=== PATIENT | male | born 1950 | race Caucasian/White ===

== ENCOUNTER 2018-03-24 10:16 | Outpatient (CLI) | payer MEDICARE, BC ==
[2018-03-24] MEDS ORDERED: BARIUM SULFATE 176 GM BOTTLE PO ONE (11:41)
[2018-03-24] MEDS ORDERED: BARIUM SULFATE 135 ML BOTTLE PO ONE (11:41)
--- NOTE | 2018-03-24 15:09 | XRAY Report ---
ESOPHAGRAM: 03/24/2018 CLINICAL INDICATION: Sensation of food sticking in mid-esophagus, history of severe chest trauma. COMPARISON: Upper gastrointestinal 02/12/2013. FINDINGS: Esophagram was performed in the upright and prone positions. The hypopharynx appears unremarkable. The esophagus is normal in caliber. Aortic stent graft is again noted. A small sliding hiatal hernia is again seen, producing gastroesophageal reflux. Presbyesophagus is again noted. No ulceration, mass lesion, or stricture ring is identified. A 13 mm barium pill passed freely through the esophagus and into the stomach. IMPRESSION: PERSISTENT SMALL SLIDING HIATAL HERNIA AND PRESBYESOPHAGUS. NO ULCERATION, MASS LESION, OR STRICTURING IS IDENTIFIED. CONSIDER ENDOSCOPY TO EVALUATE FOR DEVELOPMENT OF SOUSA'S ESOPHAGUS, IF CLINICALLY WARRANTED. FLUOROSCOPY TIME: 1 minute 48 seconds; 17 spot images obtained. TD: 03/24/2018 15:09
== END 2018-03-24 10:17 | disposition home or self-care (01) ==
LOC: DI 10:16
PROVIDERS: ATTEND Internal Medicine
DX: K44.9 Diaphragmatic hernia without obstruction or gangrene (principal); K22.8 Other specified diseases of esophagus
CPT/HCPCS: 74220; A9270

== ENCOUNTER 2018-05-30 14:12 | Emergency (ER) | payer MEDICARE, BC ==
[2018-05-30] MEDS ORDERED: ASPIRIN CHEW 81 MG TABLET PO STA (14:38)
--- NOTE | 2018-05-30 14:42 | ED Physician Documentation ---
PD HPI CHEST PAIN - Stated complaint Stated Complaint: CHEST TIGHNESS/WEAKNESS - Chief complaint Chief Complaint: Cardiac - History obtained from History obtained from: Patient - History of Present Illness Timing - onset: Today (This is a 68-year-old gentleman who about 5 years ago had a major trauma with aortic tear and aortic stent in place in the ascending aorta, he was treated at that time at [facility]. He was visiting [place] last week, up at altitude, this was about a week ago, but only 9000 feet. He developed shortness of breath and edema, he was seen at a clinic. He also had gastroenteritis with diarrhea. He was treated with ciprofloxacin, but was also noted to have bigeminy on EKG and pulmonary edema so was taken down to see level where those symptoms resolved. However given the bigeminy I think there was a concern for coronary disease and he was advised to follow-up with a electronics hardware design engineer on return home. He was slowly improving, but has been fairly fatigued. Today he went out for his usual walk but had to cut it shorter early because he developed chest tightness, anterior and nonradiating without shortness of breath. He went home and rested and the chest tightness went away within a few hours. He is pain-free at this juncture.) - Additional information Additional information: They bring with them records from [place], they were reviewed. He had a negative troponin, high d-dimer. Chest x-ray after resolution of the pulmonary edema was clear to my eye. He does have an EKG with him which showed bigeminy but no other significant ST-T changes. He did have a high d-dimer at the time, but it sounds like that was treated with Lovenox as opposed to further testing at least initially because they did lack to CT scanner. Review of Systems Ten Systems: 10 systems reviewed and negative Constitutional: denies: Fever, Chills Cardiac: reports: Chest pain / pressure. denies: Palpitations, Pedal edema, Calf pain Respiratory: denies: Dyspnea, Cough GI: denies: Abdominal Pain, Abdominal Swelling, Nausea, Vomiting : denies: Dysuria, Frequency, Hesitancy PD PAST MEDICAL HISTORY - Past Medical History Past Medical History: Yes Cardiovascular: Other Respiratory: None Endocrine/Autoimmune: None GI: GERD, Hemorrhoids : None HEENT: None Psych: None Musculoskeletal: Chronic back pain Derm: None - Past Surgical History Past Surgical History: Yes General: Cholecystectomy Ortho: Arthroscopic surgery, Other Cardiovascular: Other - Present Medications Home Medications: Ambulatory Orders Medication Instructions Recorded Confirmed Acyclovir 200 mg PO DAILY 03/31/15 08/17/15 Atorvastatin Calcium 40 mg PO DAILY #30 tablet 05/30/18 Metoprolol Succinate 25 mg PO DAILY #30 tab.er.24h 05/30/18 Nitroglycerin 0.4 mg SL ONCE #1 bot 05/30/18 - Allergies Allergies/Adverse Reactions: Allergies Allergy/AdvReac Type Severity Reaction Status Date / Time bee venom protein (honey bee) Allergy Anaphylaxis Verified 05/30/18 14:20 - Social History Does the pt smoke?: No Smoking Status: Never smoker Does the pt drink ETOH?: No Does the pt have substance abuse?: No - Family History Family history: reports: Non contributory - Immunizations Immunizations are current?: Yes - POLST Patient has POLST: No PD ED PE NORMAL - Vitals Vital signs reviewed: Yes - General General: Alert and oriented X 3, No acute distress - HEENT HEENT: PERRL, EOMI - Neck Neck: Supple, no meningeal sign, No bony TTP - Cardiac Cardiac: RRR, No murmur - Respiratory Respiratory: No respiratory distress, Clear bilaterally - Abdomen Abdomen: Normal bowel sounds, Soft, Non tender - Back Back: No CVA TTP, No spinal TTP - Derm Derm: Normal color, Warm and dry - Extremities Extremities: No edema, No calf tenderness / cord - Neuro Neuro: Alert and oriented X 3, Normal speech - Psych Psych: Normal mood, Normal affect Results - Vitals Vitals: Vital Signs - 24 hr 05/30/18 05/30/18 05/30/18 14:16 15:14 15:45 Temperature 36.7 C Heart Rate 87 71 70 Respiratory 16 14 16 Rate Blood Pressure 106/85 H 136/90 H 119/70 O2 Saturation 97 96 99 Oxygen O2 Source Room air - EKG (time done) 1419 Rate: Rate (enter#) (79) Rhythm: NSR [place]: Normal Intervals: Other (LAFB) QRS: Normal Ischemia: Normal ST segments Computer interpretation: Agree with computer - Labs Labs: Laboratory Tests 05/30/18 05/30/18 05/30/18 14:45 14:45 14:45 WBC 5.5 RBC 4.59 L Hgb 14.7 Hct 43.0 MCV 93.8 MCH 32.1 H MCHC 34.3 RDW 13.0 Plt Count 238 MPV 7.6 Neut # (Auto) 3.4 Lymph # (Auto) 1.5 [place] # (Auto) 0.5 Eos # (Auto) 0.1 Baso # (Auto) 0.1 Absolute Nucleated RBC 0.00 Nucleated RBC % 0.0 Sodium 136 Potassium 3.9 Chloride 102 Carbon Dioxide 27 Anion Gap 7.0 BUN 17 Creatinine 1.2 Estimated GFR (MDRD) 60 L Glucose 102 H Calcium 9.0 Total Bilirubin 0.6 AST 19 ALT 21 Alkaline Phosphatase 73 Troponin I < 0.04 Total Protein 7.3 Albumin 3.9 Globulin 3.4 Albumin/Globulin Ratio 1.1 Lipase 37 - Rads (name of study) CTA Chest Radiology: EMP read contemporaneously (NAD, no PE) PD MEDICAL DECISION MAKING - ED course ED course: No known history I do not think of coronary disease presents with an episode of what sounds like somewhat typical exertional angina after traveling and having a bout of GI symptoms and altitude sickness. He is pain-free on arrival with a nonischemic EKG here. And his biomarkers are negative. Given the positive d- dimer in [place] his chest was CT to rule out pulmonary embolism, but his symptoms really are not too reminiscent of PE per se. He will need expedited follow-up with a electronics hardware design engineer for a stress test and I spoke with Dr. Vazquez hematologist oncologist for the [facility] system who agreed and will put in a referral, they should still call the clinic and I will give him number. He agreed with putting him on a beta-brigette and a statin but no Plavix for now and continuing the aspirin. - Sepsis Event Vital Signs: Vital Signs - 24 hr 05/30/18 05/30/18 05/30/18 14:16 15:14 15:45 Temperature 36.7 C Heart Rate 87 71 70 Respiratory 16 14 16 Rate Blood Pressure 106/85 H 136/90 H 119/70 O2 Saturation 97 96 99 Oxygen O2 Source Room air Departure - Departure Disposition: 01 Home, Self Care Clinical Impression: Chest pain Qualifiers: Chest pain type: unspecified Qualified Code(s): R07.9 - Chest pain, unspecified Condition: Good Record reviewed to determine appropriate education?: Yes Instructions: Nitroglycerin Fast Act Dc, Angina Dc Prescriptions: Atorvastatin Calcium 40 mg PO DAILY #30 tablet Metoprolol Succinate 25 mg PO DAILY #30 tab.er.24h Nitroglycerin 0.4 mg SL ONCE #1 bot Comments: I spoke with the electronics hardware design engineer hematologist oncologist for the [facility] system today, Dr. Vazquez who will put in a referral for cardiology visit and echocardiogram and/or stress test. In the meantime there are some new medications to start which I have written new prescriptions for, if you develop further chest pain please return immediately for reevaluation. He will need to call the clinic and set up the actual appointment time, the number is .
[2018-05-30 14:53] LABS: BASOPHILS # (AUTO) 0.1 10^3/uL (0.0-0.1); EOSINOPHILS # (AUTO) 0.1 10^3/uL (0.0-0.7); EOSINOPHILS % (AUTO) 1.3 %; HGB - HEMOGLOBIN 14.7 g/dL (14.0-18.0); LYMPHOCYTES # (AUTO) 1.5 10^3/uL (1.5-3.5); LYMPHOCYTES % (AUTO) 26.9 %; MEAN CORPUSCULAR HEMOGLOBIN 32.1 pg (27.0-31.0); MEAN CORPUSCULAR HGB CONC 34.3 g/dL (32.0-36.0); MEAN CORPUSCULAR VOLUME 93.8 fL (80.0-94.0); MEAN PLATELET VOLUME 7.6 fL (7.4-11.4); MONOCYTES # (AUTO) 0.5 10^3/uL (0.0-1.0); MONOCYTES % (AUTO) 8.4 %; NEUTROPHILS # (AUTO) 3.4 10^3/uL (1.5-6.6); NEUTROPHILS % (AUTO) 62.4 %; PLT - PLATELET COUNT 238 10^3/uL (130-450); RED BLOOD COUNT 4.59 10^6/uL (4.70-6.10); WHITE BLOOD COUNT 5.5 x10^3/uL (4.8-10.8)
[2018-05-30 15:07] LABS: ALBUMIN 3.9 g/dL (3.2-5.5); ALBUMIN/GLOBULIN RATIO 1.1 (1.0-2.2); BILIRUBIN,TOTAL 0.6 mg/dL (0.2-1.0); CREATININE 1.2 mg/dL (0.6-1.2); TOTAL PROTEIN 7.3 g/dL (6.7-8.2)
[2018-05-30] MEDS ORDERED: IOPAMIDOL-300 100 ML VIAL ONE (15:34)
[2018-05-30] MEDS ORDERED: IOPAMIDOL-300 100 ML VIAL IVP ONE (15:35)
--- NOTE | 2018-05-30 16:04 | CT Report ---
Procedure Date: 05/30/2018 Accession Number: [id number] / [id number] Procedure: CT - Chest Angio (PE) CPT Code: FULL RESULT: EXAM: CT ANGIOGRAM CHEST EXAM DATE: 05/30/2018 03:43 PM. CLINICAL HISTORY: Chest pain. Elevated d-dimer. COMPARISON: None. TECHNIQUE: Routine helical imaging was performed through the chest in the pulmonary arterial phase. IV Contrast: 80 cc of Isovue-300. Reconstructions: Coronal 3-D MIP reconstructions.Sagittal and coronal. In accordance with CT protocol optimization, one or more of the following dose reduction techniques were utilized for this exam: automated exposure control, adjustment of mA and/or KV based on patient size, or use of iterative reconstructive technique. FINDINGS: Pulmonary Arteries: Diagnostic quality: Adequate through the segmental arteries. No evidence for acute or chronic pulmonary emboli. RV/LV is within normal limits. There is no interventricular septal bowing. There is reflux of contrast material in the IVC. Lungs/Pleura: Bilateral calcified granulomas. No consolidation, nodules, or edema. No effusions or pneumothorax. Mediastinum: Normal. No cardiac enlargement or adenopathy. Thoracic Aorta: No aneurysm. Upper thoracic aortic stent noted. Upper Abdomen: Unremarkable. Other: Old left rib fractures noted. Chronic compression fracture at T11. IMPRESSION: 1. No pulmonary emboli. 2. No aortic aneurysm, noting upper thoracic aortic stent in place. 3. Calcified granulomas bilaterally. 4. Chronic T11 compression fracture and old left rib fractures noted. RADIA
[2018-05-30 16:21] VITALS: BP 118/80
== END 2018-05-30 16:20 | disposition home or self-care (01) ==
LOC: ED 14:12
DX: R07.9 Chest pain, unspecified (principal); I44.4 Left anterior fascicular block
CPT/HCPCS: 36415; 71275; 80053; 83690; 84484; 85025; 93005; 99284; 99285; A9270; Q9967

== ENCOUNTER 2018-08-17 12:08 | Outpatient (CLI) | payer MEDICARE, BC ==
--- NOTE | 2018-08-17 13:50 | Ultrasound Report ---
Reason: LEFT NECK MASS Procedure Date: 08/17/2018 Accession Number: [id number] / [id number] Procedure: US - Head or Neck Soft Tissue CPT Code: FULL RESULT: EXAM: NECK ULTRASOUND EXAM DATE: 08/17/2018 12:28 PM. CLINICAL HISTORY: LEFT NECK MASS. COMPARISON: None. TECHNIQUE: Real-time sonographic imaging was performed by the folding machine setter utilizing color-flow. Multiple brewery representative static images were saved for review. FINDINGS: In the area of clinical concern in the left neck there is a benign-appearing lymph node measuring 1.5 x 1.0 x 1.0 cm. This has a retained fatty hilum. IMPRESSION: In the area of clinical concern in the left neck there is a benign-appearing lymph node measuring up to 1.5 cm. RADIA
== END 2018-08-17 12:09 | disposition home or self-care (01) ==
LOC: DI 12:08
PROVIDERS: ATTEND Nurse Practitioner Family
DX: R22.1 Localized swelling, mass and lump, neck (principal)
CPT/HCPCS: 76536

== ENCOUNTER 2021-07-19 08:46 | Outpatient (CLI) | payer MEDICARE, BC ==
--- NOTE | 2021-07-19 09:58 | XRAY Report ---
PROCEDURE: Knee 3 View RT INDICATIONS: SPRAIN OF RIGHT KNEE TECHNIQUE: 3 views of the right knee(s) were acquired. COMPARISON: None. FINDINGS: Bones: No fractures or dislocations. Mild medial femoral tibial compartment osteoarthritic changes are seen. No patella subluxation. No suspicious bony lesions. Soft tissues: There is moderate suprapatellar joint effusion. No suspicious soft tissue calcificatio ns. IMPRESSION: Mild medial femoral tibial compartment osteoarthritis and moderate joint effusion. No fr acture or dislocation. Reviewed by: Perry Rice MD on 07/19/2021 9:56 AM PDT Approved by: Perry Rice MD on 07/19/2021 9:56 AM PDT Station ID: [id number]
== END 2021-07-19 08:47 | disposition home or self-care (01) ==
LOC: DI.S 08:46
PROVIDERS: ATTEND Emergency Medicine
DX: S83.421A Sprain of lateral collateral ligament of right knee, initial encounter (principal); M17.11 Unilateral primary osteoarthritis, right knee; M25.461 Effusion, right knee

== ENCOUNTER 2022-01-19 14:14 | Outpatient (CLI) | payer MEDICARE, OTHER ==
--- NOTE | 2022-01-19 14:44 | XRAY Report ---
PROCEDURE: Chest 2 View X-Ray INDICATIONS: BACK PAIN/FALL TECHNIQUE: 2 view(s) of the chest. COMPARISON: Reference is made to the CT chest dated May 30, 2018. FINDINGS: SUPPORT DEVICES: None. LUNGS/PLEURA: No focal consolidation, pleural effusion or space-occupying pneumothorax. MEDIASTINUM: The cardiac silhouette is within normal limits. Redemonstrated aortic stent. BONES/SOFT TISSUES: No acute abnormality. IMPRESSION: 1.No acute cardiopulmonary abnormality. Reviewed by: Berny Gil MD on 01/19/2022 2:43 PM PST Approved by: Berny Gil MD on 01/19/2022 2:43 PM PST Station ID: [id number]
--- NOTE | 2022-01-19 17:48 | XRAY Report ---
PROCEDURE: Thoracic Spine 2 View INDICATIONS: BACK PAIN/FALL TECHNIQUE: 3 views of the thoracic spine were acquired. COMPARISON: None. FINDINGS: Bones: No fractures or dislocations. There is dextroscoliosis of the thoracolumbar spine with a Vicente angle of 16 degrees. A compression fracture with 30% anterior height loss is seen at T11 and a compr ession fracture with 30% anterior height loss of T2 is seen. No suspicious bony lesions. 12 pairs of ribs are noted, and appear intact where visualized. Soft tissues: No paravertebral stripe thickening. A stent of the aortic arch is noted. The patient is status post cholecystectomy. IMPRESSION: 1. Dextroscoliosis of the thoracolumbar spine. 2. Compression fractures of T11 and T2. Reviewed by: Jose Carlos Bowden on 01/19/2022 5:46 PM PST Approved by: Jose Carlos Bowden on 01/19/2022 5:46 PM PST Station ID: [id number]
== END 2022-01-19 23:59 | disposition home or self-care (01) ==
LOC: DI.S 14:14
PROVIDERS: ATTEND Registered Nurse
DX: S22.089A Unspecified fracture of T11-T12 vertebra, initial encounter for closed fracture (principal); R06.02 Shortness of breath

== ENCOUNTER 2023-02-19 09:20 | Outpatient (CLI) | payer MEDICARE, OTHER ==
--- NOTE | 2023-02-19 10:04 | XRAY Report ---
PROCEDURE: Shoulder 3 View LT INDICATIONS: PAIN OF LEFT SHOULDER JOINT TECHNIQUE: 3 views of the shoulder were acquired. COMPARISON: None FINDINGS: Bones: No fractures or dislocations. No suspicious bony lesions. Visualized ribs appear intact. M ild glenohumeral joint degenerative change. Soft tissues: No suspicious soft tissue calcifications. Thoracic aortic endograft. IMPRESSION: 1. Mild glenohumeral joint degenerative change. 2. No evidence acute bony abnormality of the left shoulder. If clinical suspicion and/or symptoms persist, further assessment with repeat plain films or advanced imaging (e.g., CT, MRI, or bone scan) may be helpful for further assessment. Reviewed by: Sam Pérez MD on 02/19/2023 10:02 AM PDT Approved by: Sam Pérez MD on 02/19/2023 10:02 AM PDT Station ID: [id number]
== END 2023-02-19 09:21 | disposition home or self-care (01) ==
LOC: DI.S 09:20
PROVIDERS: ATTEND Nurse Practitioner Family
DX: M19.012 Primary osteoarthritis, left shoulder (principal)